=== PATIENT | male | born 1955 | race African-American/Black ===

== ENCOUNTER 2017-06-19 19:51 | Emergency (ER) | payer MEDICAID ==
[~2017-06-19] VITALS: Ht 182.9 cm; Wt 91.0 kg
[~2017-06-19 19:51] MED LIST: ASPI-1160
[2017-06-19] MEDS ORDERED: METHOCARBAMOL 500MG TABLET PO ONE (22:45)
[2017-06-19] MEDS ORDERED: KETOROLAC 60MG/2ML VIAL IM ONE (22:45)
[2017-06-19] MEDS ORDERED: PREDNISONE 20MG TABLET PO ONE (22:45)
[2017-06-20 01:06] VITALS: BP 149/85
== END 2017-06-20 01:07 | disposition home or self-care (01) ==
LOC: ER 22:08
DX: M54.30 Sciatica, unspecified side (principal); M16.0 Bilateral primary osteoarthritis of hip; J45.909 Unspecified asthma, uncomplicated; F12.10 Cannabis abuse, uncomplicated; Z79.82 Long term (current) use of aspirin
CPT/HCPCS: 73502; 96372; 99284; J1885; J7512; Z7610

== ENCOUNTER 2021-09-09 14:14 | Emergency (ER) | payer MEDICAID, MEDICARE ==
[~2021-09-09] VITALS: Ht 182.9 cm; Wt 88.0 kg
[2021-09-09 14:28] VITALS: BP 145/81
[2021-09-09] MEDS ORDERED: AMOX1TAB16 MT (15:11)
[2021-09-09] MEDS ORDERED: BACITRACIN ZINC OINT UDPKT TOP ONE (15:15)
== END 2021-09-09 15:47 | disposition home or self-care (01) ==
LOC: ER 15:00
DX: S71.152A Open bite, left thigh, initial encounter (principal); J45.909 Unspecified asthma, uncomplicated; W54.0XXA Bitten by dog, initial encounter; Y93.89 Activity, other specified; Y92.89 Other specified places as the place of occurrence of the external cause; Z79.82 Long term (current) use of aspirin
CPT/HCPCS: 99283

== ENCOUNTER 2021-09-14 11:59 | Emergency (ER) | payer MEDICAID, MEDICARE ==
[~2021-09-14] VITALS: Ht 177.8 cm; Wt 89.0 kg
[~2021-09-14 11:59] MED LIST changes: +AMOX1TAB16 MT
[2021-09-14 12:26] VITALS: BP 170/89
[2021-09-14] MEDS ORDERED: [UNRECOGNIZED DRUG - CODE] TP (13:18)
[2021-09-14] MEDS ORDERED: [UNRECOGNIZED DRUG - CODE] TP (13:18)
[2021-09-14] MEDS ORDERED: NEOM28.37 TP (13:18)
== END 2021-09-14 13:35 | disposition home or self-care (01) ==
LOC: ER 11:59
DX: S71.152A Open bite, left thigh, initial encounter (principal); F12.10 Cannabis abuse, uncomplicated; J45.909 Unspecified asthma, uncomplicated; Z79.82 Long term (current) use of aspirin; W54.0XXA Bitten by dog, initial encounter; Y93.89 Activity, other specified; Y92.89 Other specified places as the place of occurrence of the external cause
CPT/HCPCS: 99281